=== PATIENT | female | born 1955 | race Caucasian/White ===

== ENCOUNTER 2020-06-13 14:27 | Outpatient (CLI) | payer OTHER ==
--- NOTE | 2020-06-13 16:43 | RAD ---
LUMBAR SPINE BENDING MINIMUM 4 VIEW: Date: 06/13/2020 HISTORY: Pain. COMPARISON: None. FINDINGS: There is dextroscoliosis of the lumbar spine of 8 degrees measured from the inferior L1 and superior L5 end plates. SI joints are relatively normal for age. Mild narrowing of the L4-5 and moderate narrowing of the L5- S1 disc space with disc osteophyte complexes. No acute fracture. Moderate facet arthrosis L4-5 and L5 -S1. No abnormal translation with flexion or extension. IMPRESSION: 1. Mild dextroscoliosis and lower lumbar degenerative change. No significant translation with flexio n or extension. 2. Possible small 3.0 mm left superior renal calculus. POS: AH
== END 2020-06-13 14:28 | disposition home or self-care (01) ==
LOC: RAD 14:27
PROVIDERS: ATTEND Pain Medicine Pain Medicine
DX: M51.36 Other intervertebral disc degeneration, lumbar region (principal); M47.816 Spondylosis without myelopathy or radiculopathy, lumbar region; M41.9 Scoliosis, unspecified
CPT/HCPCS: 72120

== ENCOUNTER 2020-10-04 12:28 | Outpatient (CLI) | payer MEDICARE, OTHER | END 2020-10-04 12:29 | disposition home or self-care (01) | LOC: TBSIIMAG 12:28 | DX: M47.22 Other spondylosis with radiculopathy, cervical region (principal); G89.4 Chronic pain syndrome | CPT/HCPCS: 72141 ==

== ENCOUNTER 2021-06-12 14:49 | Outpatient (CLI) | payer MEDICARE, OTHER | END 2021-06-12 14:50 | disposition home or self-care (01) | LOC: BICMAMMO 14:49 | PROVIDERS: ATTEND Family Medicine | DX: Z12.31 Encounter for screening mammogram for malignant neoplasm of breast (principal); Z80.3 Family history of malignant neoplasm of breast; Z98.82 Breast implant status | CPT/HCPCS: 77063; 77067 ==

== ENCOUNTER 2021-07-22 10:11 | Outpatient (CLI) | payer MEDICARE, OTHER | END 2021-07-22 10:12 | disposition home or self-care (01) | LOC: BICRAD 10:11 | PROVIDERS: ATTEND Internal Medicine Hospice and Palliative Medicine | DX: M79.671 Pain in right foot (principal) ==

== ENCOUNTER 2021-12-19 14:14 | Outpatient (CLI) | payer MEDICARE, OTHER | END 2021-12-19 14:15 | disposition home or self-care (01) | LOC: BICCT 14:14 | PROVIDERS: ATTEND Student in an Organized Health Care Education/Training Program | DX: Z12.2 Encounter for screening for malignant neoplasm of respiratory organs (principal); F17.210 Nicotine dependence, cigarettes, uncomplicated; R91.8 Other nonspecific abnormal finding of lung field | CPT/HCPCS: 71271 ==

== ENCOUNTER 2022-05-12 10:59 | Outpatient (CLI) | payer MEDICARE, OTHER ==
[~2022-05-12 10:59] MED LIST: Iopamidol-370 76% 500 ML 1 ML ONE
== END 2022-05-12 11:00 | disposition home or self-care (01) ==
LOC: BICCT 10:59
PROVIDERS: ATTEND Student in an Organized Health Care Education/Training Program
DX: R91.8 Other nonspecific abnormal finding of lung field (principal); R59.0 Localized enlarged lymph nodes
CPT/HCPCS: 71260; 82565; Q9967

== ENCOUNTER 2022-06-10 09:32 | Outpatient (CLI) | payer MEDICARE, OTHER | END 2022-06-10 09:33 | disposition home or self-care (01) | LOC: SCSMRI 09:32 | PROVIDERS: ATTEND Internal Medicine Hematology & Oncology | DX: C34.02 Malignant neoplasm of left main bronchus (principal); M62.81 Muscle weakness (generalized); H53.8 Other visual disturbances | CPT/HCPCS: 70553 ==

== ENCOUNTER 2022-06-15 12:30 | Outpatient (CLI) | payer MEDICARE, OTHER | END 2022-06-15 12:31 | disposition home or self-care (01) | LOC: PET 12:30 | PROVIDERS: ATTEND Internal Medicine Hematology & Oncology | DX: C34.02 Malignant neoplasm of left main bronchus (principal); E04.1 Nontoxic single thyroid nodule | CPT/HCPCS: 78815; A9552 ==

== ENCOUNTER 2022-07-01 14:22 | Outpatient (CLI) | payer MEDICARE, OTHER | END 2022-07-01 14:23 | disposition home or self-care (01) | LOC: BICMAMMO 14:22 | PROVIDERS: ATTEND Student in an Organized Health Care Education/Training Program | DX: Z13.820 Encounter for screening for osteoporosis (principal); M81.0 Age-related osteoporosis without current pathological fracture; M85.88 Other specified disorders of bone density and structure, other site | CPT/HCPCS: 77080 ==

== ENCOUNTER 2022-12-03 09:41 | Outpatient (CLI) | payer MEDICARE, OTHER | END 2022-12-03 09:42 | disposition home or self-care (01) | LOC: CT 09:41 | PROVIDERS: ATTEND Internal Medicine Hematology & Oncology | DX: C34.02 Malignant neoplasm of left main bronchus (principal); M81.8 Other osteoporosis without current pathological fracture | CPT/HCPCS: 71260 ==

== ENCOUNTER 2023-05-06 09:47 | Outpatient (CLI) | payer MEDICARE, OTHER | END 2023-05-06 09:48 | disposition home or self-care (01) | LOC: BICMAMMO 09:47 | PROVIDERS: ATTEND Student in an Organized Health Care Education/Training Program | DX: Z12.31 Encounter for screening mammogram for malignant neoplasm of breast (principal); Z80.3 Family history of malignant neoplasm of breast; Z85.118 Personal history of other malignant neoplasm of bronchus and lung; Z98.82 Breast implant status; Z98.890 Other specified postprocedural states | CPT/HCPCS: 77063; 77067 ==

== ENCOUNTER 2023-06-01 12:36 | Outpatient (CLI) | payer MEDICARE, OTHER ==
[2023-06-01] MEDS ORDERED: Iopamidol 370 76% 100 ML VIAL ONE (13:37)
== END 2023-06-01 12:37 | disposition home or self-care (01) ==
LOC: CT 12:36
PROVIDERS: ATTEND Internal Medicine Hematology & Oncology
DX: C34.02 Malignant neoplasm of left main bronchus (principal); E07.9 Disorder of thyroid, unspecified
CPT/HCPCS: 71260

== ENCOUNTER 2023-09-29 10:07 | Outpatient (CLI) | payer MEDICARE, OTHER | END 2023-09-29 10:08 | disposition home or self-care (01) | LOC: BICMAMMO 10:07 | PROVIDERS: ATTEND Student in an Organized Health Care Education/Training Program | DX: M81.0 Age-related osteoporosis without current pathological fracture (principal); M85.88 Other specified disorders of bone density and structure, other site | CPT/HCPCS: 77080 ==

== ENCOUNTER 2024-06-06 12:23 | Outpatient (CLI) | payer MEDICARE, OTHER | END 2024-06-06 12:24 | disposition home or self-care (01) | LOC: CT 12:23 | PROVIDERS: ATTEND Internal Medicine Hematology & Oncology | DX: C34.02 Malignant neoplasm of left main bronchus (principal) | CPT/HCPCS: 71260; 82565 ==

== ENCOUNTER 2024-08-02 10:06 | Outpatient (CLI) | payer MEDICARE, OTHER | END 2024-08-02 10:07 | disposition home or self-care (01) | LOC: BICMAMMO 10:06 | PROVIDERS: ATTEND Student in an Organized Health Care Education/Training Program | DX: Z12.31 Encounter for screening mammogram for malignant neoplasm of breast (principal); Z80.3 Family history of malignant neoplasm of breast; Z98.82 Breast implant status; Z85.110 Personal history of malignant carcinoid tumor of bronchus and lung | CPT/HCPCS: 77063; 77067 ==

== ENCOUNTER 2025-02-22 05:48 | Day surgery (SDC) | payer MEDICARE, OTHER ==
[2025-02-19 13:19] VITALS: BMI 24.0
[2025-02-22] MEDS ORDERED: Heparin 5,000 UNITS/ML VIAL ONE ×2 (06:37→08:58)
[2025-02-22] MEDS ORDERED: HYDROcodone/Acetaminophen 5/325 mg Tablet ONE (10:41)
== END 2025-02-22 13:25 | disposition home or self-care (01) ==
LOC: SDC 05:48
PROVIDERS: ATTEND Thoracic Surgery (Cardiothoracic Vascular Surgery)
PROC: 3E033TZ Introduction of Destructive Agent into Peripheral Vein, Percutaneous Approach (ICD-10-PCS; principal; 2025-02-22)
DX: I74.09 Other arterial embolism and thrombosis of abdominal aorta (principal); I10 Essential (primary) hypertension; J44.9 Chronic obstructive pulmonary disease, unspecified; Z79.899 Other long term (current) drug therapy
CPT/HCPCS: 36140; 37221; 75625; C1725 ×2; C1760; C1769 ×5; C1894; J0169; J0665; J1644; J2250; J3010

== ENCOUNTER 2025-07-04 09:05 | Outpatient (CLI) | payer MEDICARE, OTHER ==
[2025-07-04] MEDS ORDERED: Iopamidol 370 76% 100 ML VIAL ONE (09:17)
[2025-07-04 09:47] LABS: Estimated GFR - POC 94.0
== END 2025-07-04 09:06 | disposition home or self-care (01) ==
LOC: CT 09:05
PROVIDERS: ATTEND Internal Medicine Hematology & Oncology
DX: C34.02 Malignant neoplasm of left main bronchus (principal); M81.8 Other osteoporosis without current pathological fracture; Z79.899 Other long term (current) drug therapy
CPT/HCPCS: 36415; 71260; 82565; Q9967